=== PATIENT | female | born 1975 | race Caucasian/White ===

== ENCOUNTER → 2016-12-15 | Outpatient (CLI) | payer OTHER | LOC: LAB 07:07 | DX: Z00.00 Encounter for general adult medical examination without abnormal findings (principal) ==

== ENCOUNTER → 2021-03-09 | Outpatient (CLI) | payer OTHER ==
[2021-03-09 07:41] LABS: BASO # 0.03 (0.02-0.10); EOS # 0.15 (0.04-0.40); EOS % 2.9 % (1.0-5.0); HEMOGLOBIN 14.8 g/dL (12.5-16.0); LYMPH# 1.61 (1.50-4.00); MEAN CELL VOLUME 92 fl (78-100); MEAN CORPUSCULAR HEMOGLOBIN 30 pg (27-31); MEAN CORPUSCULAR HGB CONC 33 g/dL (33-37); MEAN PLATELET VOLUME 10.6 fl (7.4-10.4); MONO # 0.61 (0.20-0.80); NEU # 2.78 (1.40-6.50); PLATELET COUNT 182 K/mm3 (130-400); WHITE BLOOD COUNT 5.2 K/mm3 (4.8-10.8)
[2021-03-09 08:09] LABS: ALBUMIN 4.5 g/dL (3.5-5.0); POTASSIUM 3.8 mmol/L (3.5-5.1)
[2021-03-09 08:10] LABS: CALCIUM 9.3 mg/dL (8.3-10.5)
[2021-03-09 08:11] LABS: TOTAL PROTEIN 7.4 g/dL (6.4-8.3)
[2021-03-09 08:13] LABS: TOTAL BILIRUBIN 0.6 mg/dL (0.2-1.2)
== END ==
LOC: RAD 07:22
PROVIDERS: Nurse Practitioner Primary Care
DX: K80.50 Calculus of bile duct without cholangitis or cholecystitis without obstruction (principal); K80.80 Other cholelithiasis without obstruction

== ENCOUNTER → 2021-06-15 | Outpatient (CLI) | payer OTHER | LOC: MAMMO 14:26 | DX: Z12.31 Encounter for screening mammogram for malignant neoplasm of breast (principal); Z98.82 Breast implant status ==

== ENCOUNTER 2022-03-29 15:12 | Outpatient (RCR) | payer OTHER | END 2022-04-05 | disposition home or self-care (01) | LOC: PT | DX: M67.824 Other specified disorders of tendon, left elbow (principal) ==

== ENCOUNTER 2022-05-10 15:53 | Outpatient (RCR) | payer OTHER | END 2022-06-02 10:03 | disposition home or self-care (01) | LOC: PT 15:53 | DX: M67.824 Other specified disorders of tendon, left elbow (principal) ==

== ENCOUNTER 2022-08-28 12:47 | Outpatient (RCR) | payer OTHER | END 2022-09-05 | disposition home or self-care (01) | LOC: PT | DX: M72.2 Plantar fascial fibromatosis (principal) ==

== ENCOUNTER → 2022-09-13 | Outpatient (CLI) | payer OTHER | LOC: RAD 14:24 | DX: M77.32 Calcaneal spur, left foot (principal) ==

== ENCOUNTER 2022-10-04 07:57 | Outpatient (RCR) | payer OTHER | END 2022-11-03 | disposition home or self-care (01) | LOC: PT | DX: M72.2 Plantar fascial fibromatosis (principal) ==

== ENCOUNTER → 2024-07-02 | Outpatient (CLI) | payer OTHER | LOC: RAD 10:00 | DX: R22.1 Localized swelling, mass and lump, neck (principal) ==